=== PATIENT | male | born 1955 | race African-American/Black ===

== ENCOUNTER 2025-08-13 07:00 | Day surgery (SDC) | payer OTHER ==
[2025-08-06 15:34] VITALS: BP 128/82
[~2025-08-13] VITALS: Ht 165.1 cm; Wt 83.9 kg
[~2025-08-13 07:00] MED LIST: PLAVIX75 MG PO; TOPROL XL25 M1 PO; VASOTEC2.5 MG PO
[2025-08-13] MEDS ORDERED: HEMOSTATIC MATRIX 1 KIT KIT TOP ONE (07:25)
[2025-08-13] MEDS ORDERED: LIDOCAINE HCL 1% 20 ML VIAL IJ ONE (07:25)
[2025-08-13] MEDS ORDERED: BUPIVACAINE HCL/MPF 0.5% 30ML VIAL ONE (07:25)
[2025-08-13] MEDS ORDERED: POVIDONE-IODINE 118 ML BOTT TOP ONE (07:25)
[2025-08-13] MEDS ORDERED: DIBUCAINE 30 GM TUBE ONE (07:25)
[2025-08-13] MEDS ORDERED: CEFTRIAXONE SODIUM 2,000 MG VIAL ONE (07:34)
[2025-08-13] MEDS ORDERED: METRONIDAZOLE/SODIUM CHLORIDE 500 MG/100 ML PIGGYBACK IV ONE (07:34)
[2025-08-13] MEDS ORDERED: HYDROGEN PEROXIDE 473 ML BOTTLE TOP ONE (08:12)
[2025-08-13] MEDS ORDERED: TRAM1TAB98 PO (10:57)
[2025-08-13] MEDS ORDERED: COLACE100 MG PO (10:57)
== END 2025-08-13 12:35 | disposition home or self-care (01) ==
LOC: CIR.AMB 07:00
PROVIDERS: ATTEND Surgery
DX: K60.321 Anal fistula, complex, initial (principal); K62.89 Other specified diseases of anus and rectum